=== PATIENT | female | born 1990 | race Caucasian/White ===

== ENCOUNTER 2016-11-28 12:50 | Emergency (ER) | payer MEDICAID ==
[~2016-11-28] VITALS: Ht 162.6 cm; Wt 77.0 kg
[2016-11-28] MEDS ORDERED: IBUPROFEN 600MG TABLET PO ONE (13:45)
[2016-11-28] MEDS ORDERED: ONDANSETRON 4MG ODT PO ONE (13:45)
[2016-11-28 14:25] LABS: BASOPHILS % 0.3 % (0.0-2.0); EOSINOPHILS % 0.1 % (0.0-5.0); HEMATOCRIT. 40.7 % (36.0-48.0); LYMPHOCYTES % 18.2 % (20.0-50.0); MEAN CORPUSCULAR HEMOGLOBIN 30.5 pg (28.0-32.0); MEAN CORPUSCULAR HGB CONC 34.4 g/dL (31.0-37.0); MEAN CORPUSCULAR VOLUME 88.6 fL (81.0-99.0); MEAN PLATELET VOLUME 7.9 fl (7.4-10.4); NEUTROPHILS % 74.4 % (40.0-76.0); PLATELET 204 x1000/uL (130-400); WHITE BLOOD COUNT 6.2 x1000/uL (4.5-11.0)
[2016-11-28] MEDS ORDERED: GUAIFENESIN-DM 200MG-20MG/10ML UDC PO ONE (16:15)
[2016-11-28 17:20] VITALS: BP 118/76
== END 2016-11-28 17:24 | disposition home or self-care (01) ==
LOC: ER 13:17
DX: J18.9 Pneumonia, unspecified organism (principal); R03.0 Elevated blood-pressure reading, without diagnosis of hypertension; G40.909 Epilepsy, unspecified, not intractable, without status epilepticus; J45.909 Unspecified asthma, uncomplicated
CPT/HCPCS: 36415; 71010; 81025; 85025; 99285; C1893; Q0162; Z7610

== ENCOUNTER 2017-08-25 22:48 | Emergency (ER) | payer MEDICAID ==
[~2017-08-25] VITALS: Ht 160 cm; Wt 82.0 kg
[2017-08-26] MEDS ORDERED: KETOROLAC 60MG/2ML VIAL IM ONE (03:45)
[2017-08-26] MEDS ORDERED: HYDROCODONE/ACETAMINOPHEN 5/325MG TABLET PO ONE (03:45)
[2017-08-26 04:28] LABS: HCG SCREEN NEGATIVE
[2017-08-26 05:29] VITALS: BP 105/49
== END 2017-08-26 05:45 | disposition home or self-care (01) ==
LOC: ER 22:48
DX: S00.83XA Contusion of other part of head, initial encounter (principal); J34.2 Deviated nasal septum; R05 Cough; J45.909 Unspecified asthma, uncomplicated; F41.9 Anxiety disorder, unspecified; F17.200 Nicotine dependence, unspecified, uncomplicated; Y08.89XA Assault by other specified means, initial encounter; Y93.89 Activity, other specified; Y92.89 Other specified places as the place of occurrence of the external cause; Y99.8 Other external cause status
CPT/HCPCS: 70486; 84703; 96372; 99285; J1885

== ENCOUNTER 2018-03-14 08:58 | Emergency (ER) | payer SELFPAY ==
[~2018-03-14] VITALS: Ht 162.6 cm; Wt 82.0 kg
[2018-03-14] MEDS ORDERED: BALANCED SALT IRRIG SOLN 15ML IO ONE ×2 (09:45→11:00)
[2018-03-14] MEDS ORDERED: TETRACAINE 0.5% OPHTH DROPS 4ML OP ONE (09:45)
[2018-03-14] MEDS ORDERED: FLUORESCEIN SODIUM 1MG/STRIP BOTHEYE ONE (10:30)
[2018-03-14 13:36] VITALS: BP 118/76
== END 2018-03-14 13:39 | disposition home or self-care (01) ==
LOC: ER 08:58
DX: H57.8 Other specified disorders of eye and adnexa (principal)
CPT/HCPCS: 99283; J7030

== ENCOUNTER 2019-02-21 01:40 | Emergency (ER) | payer MEDICAID ==
[~2019-02-21] VITALS: Ht 160 cm; Wt 82.0 kg
[2019-02-21 01:50] VITALS: BP 135/70
[2019-02-21] MEDS ORDERED: BACITRACIN ZINC OINT UDPKT TOP ONE (02:15)
[2019-02-21] MEDS ORDERED: LIDOCAINE HCL/PF 1% 10 MG/ML 5ML VIAL IJ ONE (02:15)
[2019-02-21] MEDS ORDERED: KETOROLAC 60MG/2ML VIAL IM ONE (02:15)
[2019-02-21] MEDS ORDERED: HYDROCODONE/ACETAMINOPHEN 5/325MG TABLET PO ONE (04:00)
== END 2019-02-21 05:33 | disposition home or self-care (01) ==
LOC: ER 01:54
DX: S01.81XA Laceration without foreign body of other part of head, initial encounter (principal); W22.8XXA Striking against or struck by other objects, initial encounter; Y93.89 Activity, other specified; Y92.098 Other place in other non-institutional residence as the place of occurrence of the external cause
CPT/HCPCS: 12013; 96372; 99283; A4217; J1885; J3490

== ENCOUNTER 2019-02-27 22:11 | Emergency (ER) | payer MEDICAID ==
[~2019-02-27] VITALS: Ht 160 cm; Wt 82.0 kg
[2019-02-28 01:51] LABS: CLARITY URINE CLEAR (CLEAR); COLOR URINE YELLOW (YELLOW); KETONES URINE NEGATIVE (NEGATIVE); LEUKOCYTE ESTERASE URINE 1+ (NEGATIVE); NITRITE URINE NEGATIVE (NEGATIVE); OCCULT BLOOD URINE TRACE (NEGATIVE); PH URINE 6.5 (4.5-8.0); PROTEIN URINE NEGATIVE (NEGATIVE); SPECIFIC GRAVITY URINE 1.028 (1.005-1.030)
[2019-02-28] MEDS ORDERED: IBUPROFEN 600MG TABLET PO NR (02:30)
[2019-02-28 02:53] VITALS: BP 166/77
== END 2019-02-28 03:02 | disposition home or self-care (01) ==
LOC: ER 22:11
DX: Z48.00 Encounter for change or removal of nonsurgical wound dressing (principal); S01.81XA Laceration without foreign body of other part of head, initial encounter; W22.8XXA Striking against or struck by other objects, initial encounter; Y93.89 Activity, other specified; Y92.89 Other specified places as the place of occurrence of the external cause; N39.0 Urinary tract infection, site not specified
CPT/HCPCS: 81025; 99284

== ENCOUNTER 2019-11-21 23:05 | Emergency (ER) | payer MEDICAID ==
[~2019-11-21] VITALS: Ht 160 cm; Wt 85.0 kg
[2019-11-21 23:13] VITALS: BP 135/75
== END 2019-11-22 00:17 | disposition home or self-care (01) ==
LOC: ER 23:05
DX: J06.9 Acute upper respiratory infection, unspecified (principal); J45.901 Unspecified asthma with (acute) exacerbation; Z90.49 Acquired absence of other specified parts of digestive tract; Z88.1 Allergy status to other antibiotic agents
CPT/HCPCS: 99281